=== PATIENT | female | born 1955 | race Caucasian/White ===

== ENCOUNTER 2021-06-22 12:40 | Outpatient (CLI) | payer OTHER, SELFPAY | END 2021-06-22 12:41 | disposition home or self-care (01) | LOC: NAV RAD 12:40 | PROVIDERS: ATTEND Family Medicine | DX: C54.1 Malignant neoplasm of endometrium (principal); Z86.79 Personal history of other diseases of the circulatory system; I77.810 Thoracic aortic ectasia | CPT/HCPCS: 71046 ==